=== PATIENT | female | born 1960 | race Two or more races ===

== ENCOUNTER 2019-01-24 19:18 | Emergency (ER) | payer OTHER ==
[~2019-01-24] VITALS: Ht 165.1 cm; Wt 95.3 kg
[2019-01-24 19:34] VITALS: BP 207/85
== END 2019-01-24 23:13 | disposition left against medical advice (07) ==
LOC: EDBD 19:18 → ER 19:27
DX: S09.8XXA Other specified injuries of head, initial encounter (principal); R10.9 Unspecified abdominal pain; Z53.21 Procedure and treatment not carried out due to patient leaving prior to being seen by health care provider; V43.52XA Car driver injured in collision with other type car in traffic accident, initial encounter; Y93.89 Activity, other specified; Y92.488 Other paved roadways as the place of occurrence of the external cause; Y99.8 Other external cause status
CPT/HCPCS: 70450; 71045; 72125; 74176